=== PATIENT | female | born 1980 | race Caucasian/White ===

== ENCOUNTER 2021-06-26 04:35 | Emergency (ER) | payer OTHER, SELFPAY ==
--- NOTE | ~2021-06-26 | US_ITS ---
EXAMINATION: US pelvic complete w TV DATE: 06/26/2021 07:48 INDICATION: Ovarian cyst with bilateral pelvic pain TECHNIQUE: Multiple transabdominal and endovaginal sonographic images of the pelvis were obtained. COMPARISON: None. FINDINGS: The uterus measures 7.6 x 3.5 x 4.1 cm. The endometrial complex measures 5 mm in thickness. The righ t ovary is markedly enlarged measuring 7.9 x 6.4 x 6.7 with heterogeneous echogenicity with scattered internal vascular flow on color Doppler concerning for ovarian cancer. There are few smaller anechoi c cystic space within the right ovary the largest measuring 2.2 cm. The left ovary measures 3.4 x 1.8 x 2.2 cm. Vascular flow also identified in the left ovary on color Doppler. There is no free fluid i n the pelvis. IMPRESSION: 1. Marked enlargement of the heterogeneous but predominantly solid right ovary which measures 7.9 x 6 .4 x 6.7 cm and which is concerning for malignancy. Recommend gynecologic consultation. Reviewed, dictated and finalized at location A. EGE PRESIDENT IMPRESSION: 1. Marked enlargement of the heterogeneous but predominantly solid right ovary which measures 7.9 x 6.4 x 6.7 cm and which is concerning for malignancy. Recom mend gynecologic consultation.
--- NOTE | ~2021-06-26 | XR_ITS ---
EXAMINATION: XR chest 1V portable DATE: 06/26/2021 06:55 INDICATION: Lower limb swelling and pain. TECHNIQUE: frontal view of the chest was obtained. COMPARISON: None FINDINGS: The lungs are clear with no focal airspace opacities, pulmonary edema, pleural effusion or pneumothor ax. The cardiomediastinal silhouette is normal. Cholecystectomy clips in the right upper quadrant. IMPRESSION: 1. No acute cardiopulmonary disease. Reviewed, dictated and finalized at location A. ET LIGHT WIRER
--- NOTE | ~2021-06-26 | CT_ITS ---
EXAMINATION: CT abdomen pelvis w con DATE: 06/26/2021 06:27 INDICATION: Elevated liver enzymes and back pain. TECHNIQUE: Computed tomography (CT) of the abdomen and pelvis was performed with 100 mL Omnipaque-350 intravenous contrast. Automated exposure control and iterative reconstruction technique were employe d. The dose-length product was 1486.15 mGy-cm. COMPARISON: None FINDINGS: Lung bases are clear. Heart size is normal. No pericardial or pleural effusion. Small sliding-type hi atal hernia. Mild central intrahepatic biliary ductal dilation and mild dilation of the common bile d uct to 9 mm both which are within normal limits post cholecystectomy with surgical clips at the gallb ladder fossa. Nonspecific splenomegaly measuring 14.9 cm in maximal length. Pancreas and bilateral ad renal glands are normal. Bilateral renal cysts, the largest on the left measuring 3 cm posterior laye ring milk of calcium. 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 There is also asymmetri c left-sided perinephric stranding. Several tiny foci of mildly increased density along the proximal most left ureter which could represent less than 2 mm relatively low density renal stones or urotheli al enhancement no right-sided hydronephrosis. Bowels including the appendix are normal. 8.0 x 6.6 cm right adnexal mass with heterogeneous attenuation suspicious for ovarian neoplasm including malignant although differential would also include hemorrhagic cyst. Uterus, left ovary and bladder are unrema rkable. No free intraperitoneal gas or fluid. No pathologically enlarged abdominal or pelvic lymphade nopathy. Mild lumbar levocurvature. Chronic mild anterior wedging at T10 and T11. Moderate lumbar and lower thoracic spondylosis most notable for a disc extrusion at T10-T11 resulting in moderate centra l canal stenosis at this level. IMPRESSION: 1. 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 Small foci of increased but less than calcific density along the proximal lef t ureter equivocal for tiny low-density renal stones versus urothelial enhancement since in the setti ng of the ascending urinary tract infection. Correlate with urinalysis. If clinically indicated could consider further evaluation with CT urogram. 2. 8.0 x 6.6 cm heterogeneous attenuation right adnexal mass with differential including enhancing ne oplasm including malignant versus hemorrhagic cyst. Recommend pelvic ultrasound for further evaluatio n. 3. Nonspecific mild splenomegaly which could be related to body habitus. 4. Mild intra and extrahepatic biliary ductal dilation which is within normal limits post cholecystec ashia. Given reported elevated liver enzymes however could consider MRCP for further evaluation as cli nically indicated. Reviewed, dictated and finalized at location A. METER ENGINEER IMPRESSION: 1. 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 Small foci of increased but less than calcific density along the proximal left ureter equivocal for tiny low-den sity renal stones versus urothelial enhancement since in the setting of the asc ending urinary tract infection. Correlate with urinalysis. If clinically indica vivian could consider further evaluation with CT urogram. 2. 8.0 x 6.6 cm heterogeneous attenuation right adnexal mass with differential including enhancing neoplasm including malignant versus hemorrhagic cyst. Recom mend pelvic ultrasound for further evaluation. 3. Nonspecific mild splenomegaly which could be related to body habitus. 4. Mild intra and extrahepatic biliary ductal
[2021-06-26 04:41] VITALS: BP 151/109; PULSE 109; RESP 24; TEMP 36.3; O2SAT 100
--- NOTE | 2021-06-26 04:54 | PC.NURSE ---
Pt to ED 2 in [facility] crying, moaning, and thrashing upper and lower extremities. pt tearful and reports she has had pain to left lower back, going down left buttock, and ending in left anterior lower leg. pain is worst in buttock, although pt fully mobile without apparent difficulty. house arrest anklet to right lower leg - in place without skin breakdown. pt also reports she is an IV drug user and last injected amphetamines yesterday. Also of note, pt has been urinating on herself as she cannot make it in time to bathroom, and is losing control of bladder. denied incontinence of stool. moaning loudly with family at bedside. placed in gown. will continue to monitor.
--- NOTE | 2021-06-26 05:15 | ED.GENADULT ---
HPI - General Adult General Chief complaint: Extremity Injury, Lower <Cesar John MD - Last Filed: 06/26/21 06:58> Stated complaint: Left hip pain/ ankle swelling <Cesar John MD - Last Filed: 06/26/21 06:58> Time Seen by Provider: 06/26/21 04:53 <Cesar John MD - Last Filed: 06/26/21 06:58> History of Present Illness HPI narrative: Patient is a 40-year-old female who presents the emergency department with complaint of left lower extremity pain. The patient reports that she started having pain in her left lower extremity for several weeks the patient states the pain starts in her left buttocks and radiates down her left leg. The patient states that the pain is become so bad that she has had episodes of urinating on herself. The patient states that she has history of IV meth use and last used in the last 24 hours. The patient states that she has not had fever reports no foot drop. The patient reports no prior history of epidural abscess or other condition. <Cesar John MD - Last Filed: 06/26/21 06:58> Related Data Allergies/adverse reactions: Allergies Allergy/AdvReac Type Severity Reaction Status Date / Time morphine Allergy Mild Dyspnea / Verified 06/26/21 05:46 SOB <Cesar John MD - Last Filed: 06/26/21 06:58> Review of Systems Review of Systems: A 10 system review of systems was completed on the patient and is negative except for what is stated in the HPI. Nursing and ancillary documentation was reviewed. <Cesar John MD - Last Filed: 06/26/21 06:58> Exam Narrative: GENERAL: Well-appearing, well-nourished, and in no acute distress. HEAD: Normocephalic, atraumatic. EYES: PERRLA and EOMI. ENT: Nares clear, no rhinorrhea or epistaxis. Mucous membranes moist. NECK: Supple. CHEST: Clear to auscultation. No respiratory distress. HEART: Regular rate and rhythm. No murmur heard. Normal peripheral pulses. ABDOMEN: Soft, nontender, nondistended, normal active bowel sounds. EXTREMITIES: Normal range of motion. No edema. Patient is holding left leg flexed the patient has tenderness to palpation along the sciatic nerve on the left. SKIN: Warm, dry, no rash. NEURO: No focal deficits. Alert and oriented x3. PSYCH: Normal mood and affect. <Cesar John MD - Last Filed: 06/26/21 06:58> Course Course Emergency Course: Chest x-ray shows no focal consolidation <Cesar John MD - Last Filed: 06/26/21 06:58> Reevaluation(s) Reevaluation #1: Patient apparently left ED before evaluation is complete and before receiving any instructions. She is considered to have left AMA. She is awake, alert and competent to make medical decision for herself. <Romana Mckeon MD - Last Filed: 06/27/21 07:15> Date: 06/26/21 <Romana Mckeon MD - Last Filed: 06/27/21 07:15> Time: 09:34 <Romana Mckeon MD - Last Filed: 06/27/21 07:15> Vital Signs Vital signs: Vital Signs Temperature 36.3 C L 06/26/21 04:41 Pulse Rate 109 H 06/26/21 04:41 Respiratory Rate 24 H 06/26/21 04:41 Blood Pressure 151/109 H 06/26/21 04:41 Pulse Oximetry 100 06/26/21 04:41 Temperature 36.1 C L 06/26/21 05:41 Pulse Rate 69 06/26/21 06:54 Respiratory Rate 20 06/26/21 06:54 Blood Pressure 156/122 H 06/26/21 06:54 Pulse Oximetry 99 06/26/21 06:54 <Cesar John MD - Last Filed: 06/26/21 06:58> Vital Signs Temperature 36.3 C L 06/26/21 04:41 Pulse Rate 109 H 06/26/21 04:41 Respiratory Rate 24 H 06/26/21 04:41 Blood Pressure 151/109 H 06/26/21 04:41 Pulse Oximetry 100 06/26/21 04:41 Temperature 36.1 C L 06/26/21 05:41 Pulse Rate 69 06/26/21 06:54 Respiratory Rate 20 06/26/21 06:54 Blood Pressure 156/122 H 06/26/21 06:54 Pulse Oximetry 99 06/26/21 06:54 <Romana Mckeon MD - Last Filed: 06/27/21 07:15> Medical Decision Making
--- NOTE | 2021-06-26 05:25 | PC.NURSE ---
Specimens walked down to lab including 1st set of bc. Tube system down.
[2021-06-26] MEDS: HYDROmorphone HCL INJ (*CRX) 1 MG/ML SYR IV PUSH (05:26)
[2021-06-26 05:34] LABS: Basophils Percent Auto 0.2 % (0.2-1.2); Eosinophils Percent Auto 0.4 % (0-4.4); Hematocrit 43.2 % (37.0-47.0); Hemoglobin 15.9 g/dL (12.0-15.0); Immature Granulocyte Absolute 0.03 K/mm3 (0.00-0.031); Immature Granulocyte Percent A 0.3 % (0-0.5); Lymphocytes Percent Auto 13.1 % (18.3-44.2); Mean Corpuscular HGB Conc 36.8 g/dl (32-36); Mean Corpuscular Hemoglobin 31.5 pg (26-34); Mean Corpuscular Volume 85.5 fl (80-100); Mean Platelet Volume 10.1 fl (7.4-10.4); Monocytes Absolute Auto 0.6 K/mm3 (0.1-0.6); Monocytes Percent Auto 5.8 % (2.6-8.5); Neutrophils Absolute Auto 8.6 K/mm3 (1.3-6.7); Neutrophils Percent Auto 80.2 % (45.5-73.1); Platelet Count Result 229 k/mm3 (150-375); Red Blood Count 5.05 M/mm3 (4.2-5.4); Red Cell Distribution Width 11.9 % (11.5-14.5); White Blood Count 10.7 K/mm3 (4.5-10.0)
--- NOTE | 2021-06-26 05:40 | PC.NURSE ---
2nd set of blood cultures obtained and awaiting next trip to lab.
[2021-06-26 05:41] VITALS: BP 179/116; PULSE 104; RESP 21; TEMP 36.1; O2SAT 98
[2021-06-26 05:44] LABS: Alanine Aminotransferase 195 U/L (4-35); Albumin Level 4.2 g/dL (3.5-5.1); Alkaline Phosphatase 136 U/L (38-126); Anion Gap 10 mmol/L (8-16); Aspartate Amino Transferase 104 U/L (14-36); Bilirubin,Total 1.1 mg/dL (0.2-1.3); Blood Urea Nitrogen 13 mg/dL (7-17); CRP 2.4 mg/dL (<1.0); Calcium 9.4 mg/dL (8.4-10.2); Carbon Dioxide 26 mmol/L (22-30); Chloride 92 mmol/L (98-107); Estimated CRCL calculation 159 ml/min; Estimated Glomerular Filt Rate > 60; Glucose 421 mg/dL (65-110); Sodium 128 mmol/L (137-145)
[2021-06-26 05:45] LABS: INR 0.9; Prothrombin Time 12.5 Seconds (11.1-14.7)
[2021-06-26 06:23] LABS: Erythrocyte Sedimentation Rate 18 mm/hr (0-20)
[2021-06-26 06:54] VITALS: BP 156/122; PULSE 69; RESP 20; O2SAT 99
--- NOTE | 2021-06-26 08:30 | PC.NURSE ---
belkis in lab aware of hepatitis panel add on.
--- NOTE | 2021-06-26 08:45 | PC.NURSE ---
Ambulatory to bathroom with steady gait.
--- NOTE | 2021-06-26 08:59 | PC.NURSE ---
Lying on cart rolling from side to side. Moaning continuously and calling out for help. c/o pain to left buttock that radiates down her leg.
[2021-06-26 09:18] LABS: Add Urine Microscopic? YES; Appearance Urine Clear (Clear); Bilirubin Urine Negative (Negative); Color Urine Yellow (Yellow); Glucose Urine UA 3+ mg/dL (Negative); Ketones Urine 1+ mg/dL (Negative); Leukocyte Esterase Ur Negative LEU/UL (Negative); Mucus Urine Rare /lpf; Nitrate Urine Negative (Negative); Protein Urine Negative (Negative); Squamous Epithelial Cell Urine Few /hpf (Few)
[2021-06-26 09:20] LABS: Amphetamine Screen Urine Positive (Negative); Barbiturate Screen Urine Negative (Negative); Benzodiazepines Screen Urine Negative (Negative); Cannabinoid Screen Urine Positive (Negative); Cocaine Screen Urine Negative (Negative); Methadone Screen Urine Negative (Negative); Opiate Screen Urine Positive (Negative); Phencyclidine Screen Urine Negative (Negative)
--- NOTE | 2021-06-26 09:34 | PC.NURSE ---
Pt ambulatory out of dept. When pt asked about her IV she states it was left on the bed and refuses to let nurse check her arm to be sure it was removed. When nurse returned to room the IV catheter was not found. Rea JUAREZ notified.
--- NOTE | 2021-06-26 09:36 | PC.NURSE ---
MPD notified pt eloped with iv intact. 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
[2021-06-26 09:55] LABS: Blood Urine Negative (Negative); Specific Grav Ur > 1.060 (1.001-1.035)
[2021-06-26 09:56] LABS: Hepatitis B Surface Antigen Negative (Negative)
[2021-06-26 10:01] LABS: HAV RESULT Negative (Negative); Hepatitis B Core IgM Result Negative (Negative)
[2021-06-26 10:15] LABS: Hepatitis C Virus Antibody Reactive (Negative)
[2021-06-28 15:46] LABS: Hepatitis C RNA, Quant PCR 554000 IU/mL
== END 2021-06-26 09:43 | disposition left against medical advice (07) ==
PROVIDERS: Emergency Medicine; Emergency Provider Emergency Medicine
DX: M54.42 Lumbago with sciatica, left side (principal); N83.9 Noninflammatory disorder of ovary, fallopian tube and broad ligament, unspecified; E87.1 Hypo-osmolality and hyponatremia; R73.9 Hyperglycemia, unspecified; I10 Essential (primary) hypertension
CPT/HCPCS: 36415; 71045; 74177; 76830; 76856; 80053; 80074; 80307; 81001; 81025; 83605; 85025; 85610; 85652; 85730; 86140; 87040; 87077; 87086; 87088; 87186; 87522; 96374; 99284; J1170; Q9967